=== PATIENT | male | born 1990 | race Caucasian/White ===

== ENCOUNTER → 2016-05-09 | Outpatient (CLI) | payer BC ==
[2016-05-09 17:02] LABS: HEMATOCRIT 39.9 % (42-52)
[2016-05-09 17:12] LABS: FERRITIN 115.5 ng/ml (8.0-388.0)
== END | disposition home or self-care (01) ==
LOC: C.LABBC 13:34
PROVIDERS: ATTEND Internal Medicine
DX: D64.9 Anemia, unspecified (principal)

== ENCOUNTER → 2016-05-20 | Outpatient (CLI) | payer BC | END | disposition home or self-care (01) | LOC: C.LABSPEC 15:12 | PROVIDERS: ATTEND Family Medicine | DX: R21 Rash and other nonspecific skin eruption (principal) ==